=== PATIENT | female | born 1950 | race African-American/Black ===

== ENCOUNTER 2018-03-23 14:03 | Emergency (ER) | payer MEDICARE, MEDICAID ==
[~2018-03-23] VITALS: Ht 175.3 cm; Wt 59.0 kg
[~2018-03-23 14:03] MED LIST: CYCLOBENZAPRINE10 MG ORAL; ENALAPRIL MALEAT5 MG ORAL; IBUPROFEN600 MG ORAL
[2018-03-23 14:11] VITALS: BP 125/82
[2018-03-23] MEDS ORDERED: Acetaminophen 500mg (ES) tab ORAL ONE (14:15)
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
[2018-03-23] MEDS ORDERED: NAPROXEN500 M2 ORAL (14:47)
[2018-03-23 14:56] VITALS: BP 125/82
--- NOTE | 2018-03-23 15:10 | Diagnostic Imaging Report ---
Indication: Pain Technique: XRAY Foot Complete R Comparison: 03/02/2016 Findings: No acute fracture or dislocation. There is mild hallux valgus. No focal soft tissue abnormality appreciated. No radiopaque foreign body seen. Impression: No evidence of acute fracture. Mild hallux valgus.
== END 2018-03-23 15:00 | disposition home or self-care (01) ==
LOC: EMR 14:35
DX: M79.671 Pain in right foot (principal); M20.11 Hallux valgus (acquired), right foot
CPT/HCPCS: 99283

== ENCOUNTER 2018-04-04 12:19 | Emergency (ER) | payer OTHER, MEDICAID ==
[~2018-04-04] VITALS: Ht 175.3 cm; Wt 59.0 kg
[~2018-04-04 12:19] MED LIST changes: +NAPROXEN500 M2 ORAL
[2018-04-04] MEDS ORDERED: AMLODIPINE BESYL5 MG ORAL (12:25)
[2018-04-04 12:45] VITALS: BP 148/89
[2018-04-04] MEDS ORDERED: MEDROL4 M1 PO (13:06)
[2018-04-04] MEDS ORDERED: BENADRYL25 MG ORAL (13:06)
--- NOTE | 2018-04-04 13:06 | Emergency Room Report ---
History of Present Illness General Chief Complaint: Skin Rash/Abscess Source: Patient Present Illness HPI 68-year-old female patient presents ER complaining of multiple blisters on her left leg secondary to bug bites x 2 days. reports bites are itchy. Reports she isn't taking any medication currently for relief of symptoms. Denies recent antibiotic use or travel. Denies contacts with similar symptoms. Reports she is up to date on tetanus shots Denies fever, chest pain, shortness of breath, tongue swelling, vomiting. Denies diarrhea. denies other acute symptoms. Allergies: Coded Allergies: NITROFURANTOIN (Unverified Allergy, Unknown, 03/23/18) Patient History Past Medical History: see triage record Last Menstrual Period: n/a Reviewed Nursing Documentation: PMH: Agreed; PSxH: Agreed Nursing Documentation-PMH Hx Hypertension: Yes Review of Systems All Other Systems: negative except mentioned in HPI Physical Exam Vital Signs Date Time Temp Pulse Resp B/P (MAP) Pulse Ox O2 Delivery O2 Flow Rate FiO2 04/04/18 12:22 98.1 80 16 148/89 98 98.1 Sp02 EP Interpretation: reviewed, normal General Appearance: well appearing, no apparent distress, alert, GCS 15, non- toxic Head: normocephalic, atraumatic Eyes: bilateral eye normal inspection, bilateral eye PERRL ENT: hearing grossly normal, normal pharynx, no angioedema, normal voice, uvula midline, moist mucus membranes Neck: full range of motion Respiratory: lungs clear, normal breath sounds, no rhonchi, no respiratory distress, no accessory muscle use, no wheezing, speaking full sentences Cardiovascular #1: regular rate, rhythm, no edema Musculoskeletal: back normal, digits/nails normal, gait/station normal, normal range of motion, non-tender Neurologic: alert, oriented x3, responsive, motor strength/tone normal, sensory intact Psychiatric: mood/affect normal Skin: other - 3 tense blisters on left leg at posterior lateral thigh, anterior lateral lower leg, and lateral ankle; tense, no blood in blisters, no sloughing of skin, no oral lesions, mild surrounding erythema noted on thigh Medical Decision Making PA Attestation Dr. Pedro is my supervising Physician whom patient management has been discussed with. Diagnostic Impression: Primary Impression: Blisters of multiple sites ER Course Pt. presents to the ED c/o bug bite. Ddx considered but are not limited to atopic dermatitis, bug bite, urticaria, allergic reaction. Vital signs: are WNL, pt. is afebrile ER COURSE: DO not scratch or pop blisters. Patient denies pain,, states they are itchy, fluid-filled, no blood in blisters. No sloughing of skin, no appearance of blisters with scratching or irritating skin elsewhere on body, no oral lesions, low suspicion for bullous pemphigoid. Likely localized inflammation secondary to bug bites. No sloughing of skin. take Benadryl for itching symptoms, SE drowsiness, do not take prior to drinking , driving, operating heavy machinery. take Claritin during the day. Will provide patient with oral steroid inflammation. Followup with dermatology. DISCHARGE: -Rx given for Benadryl for pruritis. SE may cause drowsiness. -Rx given for Medrol Dosepak -Patient instructed to apply warm compresses to affected area. At this time pt. is stable for d/c to home. Patient resting comfortably, in no acute distress, nontoxic appearing. Care plan and follow up instructions have been discussed with the patient prior to discharge. Patient provided with printed patient care instructions, and any necessary prescriptions. Patient instructed to follow-up with primary care provider in 2-3 days. Patient questions asked and answered. Patient reports understanding and agreement to treatment plan. ER precautions given. Patient instructed to return to ER immediately for any new or worsening of symptoms including but not limited to increasing SOB, persistent fever. - Please note that this Emergency Department Report was dictated using [employer] supervisor technology software, occasionally this can lead to erroneous entry secondary to interpretation by the dictation equipment. Last Vital Signs Date Time Temp Pulse Resp B/P (MAP) Pulse Ox O2 Delivery O2 Flow Rate FiO2 04/04/18 12:22 98.1 80 16 148/89 98 98.1 Disposition: HOME, SELF-CARE Condition: Stable Scripts Diphenhydramine Hcl* (BENADRYL*) 25 Mg Capsule 25 MG ORAL QHS PRN for Itching, #30 CAP Prov: Henry Byers P.A. 04/04/18 Methylprednisolone (MEDROL) 4 Mg Tab.ds.pk 4 MG PO DAILY for 5 Days, #1 PACK Prov: Henry Byers P.A. 04/04/18 Patient Instructions: Blisters, Insect Bite, [id number] Additional Instructions: Followup with primary care provider in 2-3 days.request referral to dermatology. Do not scratch or pop blisters. Take medications as directed. SE drowsiness, do not take prior to drinking, driving, operating heavy machinery. Patient questions asked and answered. ER precautions given, patient instructed to return to ER immediately for any new or worsening of symptoms. Henry Byers Apr 04, 2018 13:06
[2018-04-04 13:18] VITALS: BP 148/89
== END 2018-04-04 13:18 | disposition home or self-care (01) ==
LOC: EMR 12:50
DX: S80.822A Blister (nonthermal), left lower leg, initial encounter (principal); S70.322A Blister (nonthermal), left thigh, initial encounter; S90.522A Blister (nonthermal), left ankle, initial encounter; W57.XXXA Bitten or stung by nonvenomous insect and other nonvenomous arthropods, initial encounter; Y92.9 Unspecified place or not applicable; I10 Essential (primary) hypertension
CPT/HCPCS: 99284

== ENCOUNTER 2018-04-23 16:03 | Emergency (ER) | payer OTHER, MEDICAID ==
[~2018-04-23] VITALS: Ht 175.3 cm; Wt 60.8 kg
[~2018-04-23 16:03] MED LIST changes: +AMLODIPINE BESYL5 MG ORAL; +BENADRYL25 MG ORAL; +MEDROL4 M1 PO
[2018-04-23 16:16] VITALS: BP 127/82
--- NOTE | 2018-04-23 16:38 | Emergency Room Report ---
History of Present Illness General Chief Complaint: Skin Rash/Abscess Source: Patient Present Illness HPI 68-year-old female patient presents ER complaining of multiple bug bites on her lower legs. Reports they're extremely pruritic and requesting medication to help with symptoms. Reports taking Benadryl at night. Reports that she was previously seen [place] [facility] [place] ago for similar symptoms, follow-up with her doctor and was told that she had a spider bite. Was not provided with any medication. Denies fever, chest pain, shortness of breath, vomiting, abdominal pain. Denies history of diabetes. reports his symptoms resolved, states the symptoms are new for the past few days after visiting her spa. Denies contacts with similar symptoms. Contrary to triage report, patient had no complaints of LAM. Allergies: Coded Allergies: NITROFURANTOIN (Unverified Allergy, Unknown, 03/23/18) Patient History Past Medical History: see triage record Last Menstrual Period: NA Reviewed Nursing Documentation: PMH: Agreed; PSxH: Agreed Nursing Documentation-PMH Past Medical History: No History, Except For Hx Hypertension: Yes Review of Systems All Other Systems: negative except mentioned in HPI Physical Exam Vital Signs Date Time Temp Pulse Resp B/P (MAP) Pulse Ox O2 Delivery O2 Flow Rate FiO2 04/23/18 16:09 98.1 66 18 127/82 98 Room Air 98.1 Sp02 EP Interpretation: reviewed, normal General Appearance: well appearing, no apparent distress, alert, GCS 15, non- toxic Head: normocephalic, atraumatic Eyes: bilateral eye normal inspection, bilateral eye PERRL ENT: hearing grossly normal, normal pharynx, no angioedema, normal voice, uvula midline, moist mucus membranes Neck: full range of motion Respiratory: lungs clear, normal breath sounds, no rhonchi, no respiratory distress, no accessory muscle use, no wheezing, speaking full sentences Cardiovascular #1: regular rate, rhythm, no edema Musculoskeletal: back normal, digits/nails normal, gait/station normal, normal range of motion, non-tender, no calf tenderness, Ashlee's Sign negative Psychiatric: mood/affect normal Skin: other - 4 circular areas of erythematous urticaria noted on bilateral lower extremities with well demarcated boredrs, no target sign, no central clearing, no satellitle lesions, no drainage, no induration or fluctance, warm to touch, elizabeth with pressure, no red streaking Medical Decision Making PA Attestation Dr. Boyle is my supervising Physician whom patient management has been discussed with. Diagnostic Impression: Primary Impression: Cellulitis ER Course Pt. presents to the ED c/o cellulitis.. Ddx considered but are not limited to rash, cellulitis, abscess, atopic dermatitis, angioedema., allergic reaction, DVT. Vital signs: are WNL, pt. is afebrile ER COURSE: physical exam consistent with cellulitis, erythematous region with well demarcated borders. Will provide patient with Bactrim to cover for possible MRSA. Take hydroxyzine for itching during the day and Benadryl at night. Side effect Benadryl drowsiness, do not take prior to drinking, driving, operating heavy machinery. Apply cool compresses to affected areas to help with itching symptoms. May use hydrocortisone for itching symptoms, advised patient on possible skin pigmentation changes, do not apply to face or skin creases. ER precautions given and followed up with primary care provider and request referral to derm. DISCHARGE: -Rx provided for Hydroxyzine -Rx provided for Bactrim At this time pt. is stable for d/c to home. Patient resting comfortably in no acute distress, nontoxic appearing. Will provide printed patient care instructions, and any necessary prescriptions. Patient instructed to complete current course of antibiotics. Care plan and follow up instructions have been discussed with the patient prior to discharge. Patient instructed to follow-up with primary care provider in 3 - 5 days and discuss further referral to implement mechanic and vascular physician. Patient questions asked and answered. ER precautions given. Patient instructed to return to ER immediately for any new or worsening of symptoms including but not limited to increasing SOB, persistent fever, intractable vomiting, calf pain. - Please note that this Emergency Department Report was dictated using [employer] scheduler technology software, occasionally this can lead to erroneous entry secondary to interpretation by the dictation equipment. Last Vital Signs Date Time Temp Pulse Resp B/P (MAP) Pulse Ox O2 Delivery O2 Flow Rate FiO2 04/23/18 16:16 98.1 78 18 127/82 98 Room Air 98.1 Disposition: HOME, SELF-CARE Condition: Stable Scripts Hydroxyzine Pamoate* (HYDROXYZINE PAMOATE*) 100 Mg Capsule 100 MG ORAL Q6H, #20 TAB 0 Refills Prov: Henry Byers 04/23/18 Trimethoprim/Sulfamethoxazole 160/800* (BACTRIM DS TABLET*) 1 Each Tablet 1 TAB ORAL TWICE A DAY for 7 Days, #14 TAB Prov: Henry Byers 04/23/18 Patient Instructions: Cellulitis, [id number], Insect Bite, [id number] Additional Instructions: Followup with primary care provider in 3 -5 days. Request referral to dermatology. Do not scratch or itch. Apply cool compresses to affected area. Take medications as directed. Do not apply topical hydrocortisone medication to face or skin creases. SE Benadryl drowsiness, do not take prior to drinking, driving, operating heavy machinery. Patient questions asked and answered. ER precautions given, patient instructed to return to ER immediately for any new or worsening of symptoms. [facility] Henry Byers Apr 23, 2018 16:38
[2018-04-23] MEDS ORDERED: BACTRIM DS TAB1 EAC1 ORAL (16:43)
[2018-04-23] MEDS ORDERED: HYDROXYZINE PA100 MG ORAL (16:43)
[2018-04-23 16:46] VITALS: BP 127/82
[2018-04-24] MEDS ORDERED: CLEOCIN HCL300 MG PO (14:08)
[2018-04-24] MEDS ORDERED: CLARITIN10 MG ORAL (14:08)
== END 2018-04-23 16:47 | disposition home or self-care (01) ==
LOC: EMR 16:47
DX: L03.116 Cellulitis of left lower limb (principal); L03.115 Cellulitis of right lower limb; I10 Essential (primary) hypertension
CPT/HCPCS: 99283

== ENCOUNTER 2018-04-24 12:30 | Emergency (ER) | payer OTHER, MEDICAID ==
[~2018-04-24] VITALS: Ht 175.3 cm; Wt 60.8 kg
[~2018-04-24 12:30] MED LIST changes: +BACTRIM DS TAB1 EAC1 ORAL; +HYDROXYZINE PA100 MG ORAL
--- NOTE | 2018-04-24 13:00 | Emergency Room Report ---
History of Present Illness General Chief Complaint: Generalized Weakness Source: Patient Present Illness HPI 68-year-old female patient presents ER with multiple complaints. As previously seen in the ER for skin infections and prescribed Bactrim for possible cellulitis. Reports after taking pill she woke up this morning with left upper lip swelling, reports concern of possible allergy, states it is gone down since that time. Denies fever, chest pain, shortness of breath, vomiting, diarrhea. patient reports also feeling lightheaded during this time., Denies syncope or fainting. Denies history of similar symptoms. Denies history of heart attack or MA. Denies vision changes, ringing in ears, other acute symptoms. denies vertigo. DEnies sensation with position changes. Denies diabetes. Allergies: Coded Allergies: NITROFURANTOIN (Unverified Allergy, Unknown, 03/23/18) Patient History Past Medical History: see triage record Now: No Reviewed Nursing Documentation: PMH: Agreed; PSxH: Agreed Nursing Documentation-PMH Past Medical History: No History, Except For Hx Hypertension: Yes Review of Systems All Other Systems: negative except mentioned in HPI Physical Exam Vital Signs Date Time Temp Pulse Resp B/P (MAP) Pulse Ox O2 Delivery O2 Flow Rate FiO2 04/24/18 12:38 97.8 76 18 127/77 97 Room Air 97.9 Sp02 EP Interpretation: reviewed, normal General Appearance: well appearing, no apparent distress, alert, GCS 15, non- toxic Head: normocephalic, atraumatic Eyes: bilateral eye normal inspection, bilateral eye PERRL ENT: hearing grossly normal, normal pharynx, no angioedema, normal voice, uvula midline, moist mucus membranes Neck: full range of motion, no bony tend - no spinous process tenderness Respiratory: lungs clear, normal breath sounds, no rhonchi, no respiratory distress, no accessory muscle use, no wheezing, speaking full sentences Cardiovascular #1: regular rate, rhythm, no edema Gastrointestinal: non tender, soft, no mass, non-distended, no guarding, no rebound Genitourinary: no CVA tenderness Musculoskeletal: back normal, digits/nails normal, gait/station normal, normal range of motion, non-tender, no calf tenderness, Ashlee's Sign negative Neurologic: alert, oriented x3, responsive, metal roaster III-XII nml as tested, motor strength/tone normal, sensory intact, cerebellar normal, normal gait, speech normal Psychiatric: mood/affect normal Skin: no rash Lymphatic: no adenopathy Medical Decision Making PA Attestation Dr. Collado is my supervising Physician whom patient management has been discussed with. Diagnostic Impression: Primary Impression: Allergic reaction Additional Impression: Light-headed feeling ER Course Pt. presents to the ED c/o Possible allergic reaction and lightheadedness. Ddx considered but are not limited to allergic reaction, anaphylaxis, MA, electrolyte abnormality, anemia, hypoglycemia, dehydration. denies chest pain, shortness of breath, calf swelling, syncope, low suspicion for cardiac pathology, does not require cardiac labs at this time. cranial nerves intact, no focal neuro deficits, alert and oriented, denies vertigo or tinnitus, does not require CT head at this time. Vital signs: are WNL, pt. is afebrile ER COURSE: no vomiting, no rash, no tongue swelling, no obvious lip swelling noted on physical exam, low suspicion for anaphylaxis. normal skin turgor, cap refill less than 2 seconds, no signs of dehydration, does not require IV fluids at this time. we will change patient antibiotic from Bactrim to clindamycin to again cover for possible MRSA. Instructed patient to take Claritin during the day and Benadryl at night for itching symptoms. follow-up with dermatology.. CBC and CMP unremarkable, no anemia, no electrolyte abnormality, hypoglycemia EKG shows no ST elevations or arrhythmias follow-up with primary care provider for further workup and imaging. patient resting comfortably, in no acute distress, protecting and talking on herself home, smiling, nontoxic-appearing, okay for discharge home and outpatient follow-up. DISCHARGE: Rx provided for Claritin Rx provided for Clindamycin At this time pt is stable for d/c to home. Patient is resting comfortably, in no acute distress, nontoxic appearing, talking without difficulty. Patient to take medications as instructed Will provide with patient care instructions and any necessary prescriptions. Care plan and follow-up instructions provided. Patient instructed to follow-up with primary care provider in 3 - 5 days. Patient questions asked and answered. Patient reports understanding and agreement to treatment plan. ER precautions given. Patient instructed to return to ER immediately for any new or worsening of symptoms including but not limited to increasing SOB, persistent fever, chest pain, intractable vomiting. - Please note that this Emergency Department Report was dictated using [employer] incident analyst technology software, occasionally this can lead to erroneous entry secondary to interpretation by the dictation equipment. EKG Diagnostic Results Rate: normal Rhythm: NSR ST Segments: no acute changes ASA given to the pt in ED: No PA Scribe Text Joseph Byers PA-C Rhythm Strip Diag. Results EP Interpretation: yes Rate: 60 Rhythm: NSR, no PVC's, no ectopy PA Scribe Text Joseph Byers PA-C Last Vital Signs Date Time Temp Pulse Resp B/P (MAP) Pulse Ox O2 Delivery O2 Flow Rate FiO2 04/24/18 12:38 97.8 76 18 127/77 97 Room Air 97.9 Disposition: HOME, SELF-CARE Condition: Stable Scripts Clindamycin Hcl (CLEOCIN HCL) 300 Mg Capsule 300 MG PO TID for 7 Days, #21 CAP Prov: Henry Byers 04/24/18 Loratadine (CLARITIN) 10 Mg Tablet 10 MG ORAL DAILY, #30 TAB Prov: Henry Byers 04/24/18 Patient Instructions: Near-Syncope, [id number] Additional Instructions: Followup with primary care provider in 3 -5 days. Discuss cardiac workup and further imaging as needed. Followup with derm. Take Claritin during the day and Benadryl at night. Take medications as directed. Patient questions asked and answered. ER precautions given, patient instructed to return to ER immediately for any new or worsening of symptoms. Henry Byers Apr 24, 2018 13:00
[2018-04-24 13:30] VITALS: BP 127/77
[2018-04-24 13:36] LABS: BASOPHILS % (AUTO) 1.5 % (0.0-2.0); EOSINOPHILS % (AUTO) 1.5 % (0.0-3.0); HEMATOCRIT 38.3 % (37.0-47.0); HEMOGLOBIN 12.4 G/DL (12.0-16.0); LYMPHOCYTES % (AUTO) 30.5 % (20.0-45.0); MEAN CORPUSCULAR VOLUME 86 FL (80-99); NEUTROPHILS % (AUTO) 59.5 % (45.0-75.0); PLATELET COUNT 254 K/UL (150-450); RED BLOOD COUNT 4.46 M/UL (4.20-5.40); RED CELL DISTRIBUTION WIDTH 11.5 % (11.6-14.8); WHITE BLOOD COUNT 4.8 K/UL (4.8-10.8)
[2018-04-24 13:48] LABS: ANION GAP 6 mmol/L (5-15); BLOOD UREA NITROGEN 18 mg/dL (7-18); CALCIUM 9.8 MG/DL (8.5-10.1); CARBON DIOXIDE 29 MMOL/L (21-32); CHLORIDE 108 MMOL/L (98-107); CREATININE 1.3 MG/DL (0.55-1.30); POTASSIUM 4.2 MMOL/L (3.5-5.1); SODIUM 143 MMOL/L (136-145)
[2018-04-24 13:53] LABS: ALANINE AMINOTRANSFERASE 37 U/L (12-78); ALBUMIN 3.9 G/DL (3.4-5.0); ALKALINE PHOSPHATASE 92 U/L (46-116); ASPARTATE AMINO TRANSFERASE 45 U/L (15-37); BILIRUBIN,TOTAL 0.9 MG/DL (0.2-1.0)
[2018-04-24] MEDS ORDERED: CLEOCIN HCL300 MG PO (14:08)
[2018-04-24] MEDS ORDERED: CLARITIN10 MG ORAL (14:08)
[2018-04-24 14:23] VITALS: BP 127/77
--- NOTE | 2018-04-25 16:01 | Cardiology Report ---
APPROVED REPORT EKG Measurement Heart [id number] MA [id number] Normal sinus rhythm Minimal voltage criteria for LVH, may be normal variant Borderline ECG
== END 2018-04-24 14:23 | disposition home or self-care (01) ==
LOC: EMR 14:09
DX: T78.40XA Allergy, unspecified, initial encounter (principal); R42 Dizziness and giddiness; I10 Essential (primary) hypertension; Z88.8 Allergy status to other drugs, medicaments and biological substances; X58.XXXA Exposure to other specified factors, initial encounter; Y92.9 Unspecified place or not applicable
CPT/HCPCS: 36415; 80053; 85025; 93005; 99283